=== PATIENT | male | born 1965 | race Two or more races ===

== ENCOUNTER 2022-06-17 19:49 | Emergency (ER) | payer OTHER ==
[~2022-06-17] VITALS: Ht 182.9 cm; Wt 105.7 kg
[2022-06-17] MEDS ORDERED: GLUMETZA500 MG (20:47)
[2022-06-17] MEDS ORDERED: COZAAR50 MG PO (20:47)
[2022-06-17] MEDS ORDERED: CRESTOR5 MG PO (20:47)
[2022-06-17] MEDS ORDERED: FENOFIBRATE160 MG PO (20:48)
== END 2022-06-18 00:12 | disposition home or self-care (01) ==
LOC: ER 19:49
DX: N39.0 Urinary tract infection, site not specified (principal); R30.0 Dysuria; R32 Unspecified urinary incontinence; N21.0 Calculus in bladder; K80.20 Calculus of gallbladder without cholecystitis without obstruction; K76.0 Fatty (change of) liver, not elsewhere classified